=== PATIENT | female | born 1970 | race Caucasian/White ===

== ENCOUNTER 2022-03-30 09:31 | Outpatient (CLI) | payer OTHER, SELFPAY ==
--- NOTE | 2022-03-30 09:45 | CRLHL7_ITS ---
For Patients: As a result of the Century Cures Act, medical imaging exams and procedure reports are released immediately into your electronic medical record. You may view this report before your referring provider. If you have questions, please contact your health care provider. BILATERAL MAMMOGRAM WITH COMPUTER-AIDED DETECTION AND TOMOSYNTHESIS TECHNIQUE: CC and MLO views were obtained. These mammographic images have been obtained using full-field digital technique. These mammographic images were interpreted with the benefit of computer-aided detection. Breast Tomosynthesis was used in this interpretation. COMPARISON FILM: 03/28/21, 03/31/20, 03/31/19. FINDINGS: The breasts are heterogeneously dense, which may obscure small masses IMPRESSION: There is no radiographic evidence for malignancy. ASSESSMENT: BI-RADS Category 2: Benign RECOMMENDATION: Routine screening mammogram in 1 year. A lay language report of this examination will be provided to the patient. Jarred Bond M.D. Diagnostic Radiologist [email or web address] ISIDRO/Dictated by: Jarred Bond MD @ 04/02/2022 9:39:00 AM (Electronically Signed)
== END 2022-03-30 09:32 | disposition home or self-care (01) ==
LOC: MAMMO 09:33
PROVIDERS: Visit Provider Physician Assistant
DX: Z12.31 Encounter for screening mammogram for malignant neoplasm of breast (principal); R92.2 Inconclusive mammogram
CPT/HCPCS: 77063; 77067

== ENCOUNTER 2022-11-20 10:40 | Outpatient (CLI) | payer OTHER, SELFPAY ==
--- NOTE | 2022-11-20 11:00 | CRLHL7_ITS ---
For Patients: As a result of the Century Cures Act, medical imaging exams and procedure reports are released immediately into your electronic medical record. You may view this report before your referring provider. If you have questions, please contact your health care provider. INDICATION: new abnormal bleeding with IUD COMPARISON: none TECHNIQUE: 2D platt scale and color Doppler images were acquired of the pelvis using a transabdominal and transvaginal approach. FINDINGS: Sonographic images demonstrate a normal size and smooth outer contour of the uterus. Uterus measures 10.2 cm in length by 4.1 cm in AP diameter by 5.3 cm in transverse dimension. The myometrium has a heterogeneous echotexture. There is a left posterior fundal intramural fibroid measuring 1.6 x 1.4 x 1.4 cm. The intrauterine device is present in good position. The right ovary measures 4.2 x 1.9 x 2.8 cm in size and the left ovary measures 3.8 x 1.9 x 2.3 cm. The ovaries demonstrate normal arterial and venous blood flow on color Doppler analysis. There are no suspicious fluid collections within the cul-de-sac. Dominant follicle left ovary measuring 1.9 cm. Dominant follicle right ovary measuring 1.9 cm. IMPRESSION: Good position of the IUD within the endometrial canal. There is no endometrial fluid. A left-sided intramural fibroid is present measuring 1.6 cm which does not create mass effect upon the endometrium. Dominant follicles within each ovary. Dictated by Jarred Bond MD @ 11/20/2022 11:47:43 AM (Electronically Signed)
== END 2022-11-20 10:41 | disposition home or self-care (01) ==
PROVIDERS: Visit Provider Physician Assistant
DX: N93.9 Abnormal uterine and vaginal bleeding, unspecified (principal); N83.02 Follicular cyst of left ovary; N83.01 Follicular cyst of right ovary
CPT/HCPCS: 76830; 76856

== ENCOUNTER 2023-03-05 08:45 | Emergency (ER) | payer OTHER, SELFPAY ==
[2023-03-05 08:55] VITALS: BP 151/81; PULSE 62; RESP 16; TEMP 36.6; O2SAT 99
--- NOTE | 2023-03-05 09:07 | ED_ITS ---
HPI - Extremity Injury (Lower) General Time Seen by Provider: 09:07 Date Seen: 03/05/23 Chief Complaint: Extremity Pain/Injury, Lower Stated Complaint: left leg pain Time Seen by Provider: 03/05/23 09:07 Source: patient, RN notes reviewed and old records reviewed Mode of arrival: wheelchair Limitations: no limitations History of Present Illness HPI Narrative: Patient is a very pleasant 52-year-old female with history of vein stripping on her left leg who comes to the emergency room with her for evaluation of left leg pain. Patient was playing pickleball for the 1st time this morning. She was going to hit a ball and felt a sudden pop in her left lower calf. She was able to bear weight following that but has had pain since that time. She has not taken any medication. Movement or pressing on the lower calf increases her discomfort. She does have ice that is on her lower calf at this time. She denies any other injury. Related Data Home Medications Medication Instructions Recorded Confirmed levonorgestrel 21 mcg/24 hours (8 1 device intrauterine ONCE 03/30/22 03/05/23 yrs) 52 mg intrauterine device Allergies Allergy/AdvReac Type Severity Reaction Status Date / Time prochlorperazine Allergy Intermediate Blurred Verified 03/05/23 08:58 vision, slurred speech Sulfa drugs Allergy Intermediate Rash Uncoded 11/20/22 11:48 Review of Systems Status of ROS: Reports: 6 or more systems reviewed and unremarkable except as noted in History and below GI: Denies: vomiting Musculo: Reports: extremity pain; Denies: extremity swelling or joint pain Integ/Breast: Denies: redness or skin swelling PFSH PFSH Medical History Microscopic hematuria (08/25/10) ?R31.29 - Other microscopic hematuria (ICD-10) History of benign breast biopsy ?Z98.890 - Other specified postprocedural states (ICD-10) Surgical History History of breast biopsy ?Z98.890 - Other specified postprocedural states (ICD-10) History of bunionectomy ?Z98.890 - Other specified postprocedural states (ICD-10) Family History Paternal Grandmother Breast cancer, Onset Age: 60 Mother Diabetes High blood pressure Maternal Grandmother Osteoporosis Social History Narrative: Exercises regularly Has 2 children Non-smoker Smoking Status: Never smoker How often do you have a drink containing alcohol: 2-4 times a month AUDIT-C Alcohol total score: 2 Non-prescribed substance use: denies use Little interest or pleasure in doing things: not at all Feeling down, depressed, or hopeless: not at all Exam Narrative: Exam Narrative: Vi is alert and oriented. Very pleasant woman in no acute distress. No respiratory distress. Examination of the lower extremity shows symmetry with no obvious swelling. No obvious erythema. There is tenderness noted in the distal aspect of the calf. Achilles appears to be intact and there is no tenderness at the Achilles insertion. Patient is able to actively dorsiflex and plantar flex. Sensation is distally intact. Const: Vital Signs, click to edit/add: Vital Signs - 24 hr 03/05/23 08:55 Temperature 97.8 F Pulse Rate [Left P ulse Oximeter] 62 Respiratory Rate 16 Blood Pressure [Ri ght Upper Arm] 151/81 H Pulse Oximetry 99 Oxygen Delivery Me thod Room Air Documenting provider has reviewed patient's vital signs: yes Course Course Hospital Course: Differential diagnosis includes muscle strain, partial Achilles rupture, plantaris rupture. Will get ultrasound of the lower extremity is she has no bony tenderness at this time. Ibuprofen 800 mg p.o. Reevaluation(s) Reevaluation #1: Patient returns from ultrasound and notes improvement of her discomfort after ibuprofen. Continues to show good plantar flexion. Vital Signs Vital signs: Initial Vital Signs Temperature 97.8 F 03/05/23 08:55 Temperature Source Temporal Artery Scan 03/05/23 08:55 Pulse Rate 62 03/05/23 08:55 Respiratory Rate 16 03/05/23 08:55 Blood Pressure 151/81 H 03/05/23 08:55 Blood Pressure Mean 104 03/05/23 08:55 Blood Pressure Position Sitting 03/05/23 08:55 Pulse Oximetry 99 03/05/23 08:55 Oxygen Delivery Method Room Air 03/05/23 08:55 Vital Signs Temperature 97.8 F 03/05/23 08:55 Pulse Rate 62 03/05/23 08:55 Respiratory Rate 16 03/05/23 08:55 Blood Pressure 151/81 H 03/05/23 08:55 Pulse Oximetry 99 03/05/23 08:55 Oxygen Delivery Method Room Air 03/05/23 08:55 Temperature 97.8 F 03/05/23 08:55 Pulse Rate 62 03/05/23 08:55 Respiratory Rate 16 03/05/23 08:55 Blood Pressure 151/81 H 03/05/23 08:55 Pulse Oximetry 99 03/05/23 08:55 Oxygen Delivery Method Room Air 03/05/23 08:55 MDM - Extremity Injury (Lower) MDM Narrative Medical decision making narrative: 1. Left lower extremity injury-suspect plantaris rupture. Patient received 800 mg ibuprofen in the ED. Ultrasound did not show any evidence of abnormal Achilles. I think given the history this most likely represents plantaris rupture or injury. Will place patient in cam walker with slight elevation at the heel. Will have her use crutches for partial weight-bearing instability. Recommend icing and elevation when she does not need to be walking. Ibuprofen should be used as an anti-inflammatory. Patient does question me regarding an upcoming flight to [place]. I have suggested baby aspirin prior to flying. I have also suggested frequent movement at the ankle and calves to prevent stasis of blood and prevent DVT. Follow-up with orthopedics for recheck. 2. Disposition-home at this time. Return as needed for worsening symptoms. Medical Records Attestation: I reviewed the patient's medical records. Imaging Data Left lower extremity ultrasound: Attestation: I have reviewed the pertinent imaging results. Radiologist's impression: On the longitudinal image of the Achilles tendon, there is no evidence of full-thickness tear. Mild heterogeneity of the internal Achilles tendon echotexture suggested on the transverse images without significant surrounding fluid. No abnormal vascularity. Impression: There is no evidence of full-thickness Achilles tendon disruption by ultrasound. Discharge Plan Discharge Clinical Impression: Injury of left plantaris muscle or tendon, Injury of calf Patient Disposition: Home, Self-Care Condition: Improved Additional Instructions: Suggest ibuprofen as needed for discomfort. Recommend elevation and icing. You may bear partial weight. Will use a cam walker and crutches if your up for extended periods of time. Follow-up with orthopedics for recheck. They may suggest MRI, physical therapy or may be pleased with your improvement and discharge you without any further interventions. I would recommend baby aspirin before flying and frequent ankle movements to improve lower extremity blood flow. Return to the emergency room as needed. Prescriptions: No Action levonorgestrel 20 mcg/24 hours (7 yrs) 52 mg intrauterine device 1 device intrauterine ONCE Rx Instructions: as a single dose Follow Up/Referrals: Provider,Not a Local [Primary Care Provider] - Stand Alone Forms: [employer] Info Instructions
--- NOTE | 2023-03-05 09:16 | CRLHL7_ITS ---
For Patients: As a result of the Century Cures Act, medical imaging exams and procedure reports are released immediately into your electronic medical record. You may view this report before your referring provider. If you have questions, please contact your health care provider. Indication: r/o plantaris rupture vs achilles Technique: Grayscale and color Doppler ultrasound of the left Achilles tendon performed. Comparison: None Findings: On the longitudinal image of the Achilles tendon, there is no evidence of full-thickness tear. Mild heterogeneity of the internal Achilles tendon echotexture suggested on the transverse images without significant surrounding fluid. No abnormal vascularity. Impression: There is no evidence of full-thickness Achilles tendon disruption by ultrasound. Dictated by Jarred Bond MD @ 03/05/2023 11:51:11 AM (Electronically Signed)
[2023-03-05] MEDS: IBUPROFEN 400 MG TABLET 800 MG PO (09:33)
[2023-03-05 11:55] VITALS: BP 137/81; PULSE 55; RESP 16; O2SAT 99
== END 2023-03-05 12:27 | disposition home or self-care (01) ==
PROVIDERS: Emergency Provider Family Medicine
DX: S86.812A Strain of other muscle(s) and tendon(s) at lower leg level, left leg, initial encounter (principal); Y93.73 Activity, racquet and hand sports
CPT/HCPCS: 76882; 99283; 99284; A9270

== ENCOUNTER 2023-03-29 09:10 | Outpatient (CLI) | payer OTHER, SELFPAY ==
--- NOTE | 2023-03-29 09:15 | CRLHL7_ITS ---
For Patients: As a result of the Cures Act, medical imaging exams and procedure reports are released immediately into your electronic medical record. You may view this report before your referring provider. If you have questions, please contact your health care provider. BILATERAL SCREENING MAMMOGRAM WITH COMPUTER-AIDED DETECTION AND TOMOSYNTHESIS TECHNIQUE: CC and MLO views were obtained. These mammographic images have been obtained using full-field digital technique. These mammographic images were interpreted with the benefit of computer-aided detection. Breast Tomosynthesis was used in this interpretation. COMPARISON FILM: 03/30/22, 03/28/21, 03/31/20. FINDINGS: The breasts are extremely dense, which lowers the sensitivity of mammography IMPRESSION: There is no radiographic evidence for malignancy. ASSESSMENT: BI-RADS Category 1: Negative RECOMMENDATION: Routine screening mammogram in 1 year. A lay language report of this examination will be provided to the patient. Jrared Bond M.D. Diagnostic Radiologist [email or web address] MOLLY/david / be/Dictated by: Jarred Bond MD @ 03/29/2023 10:19:00 AM (Electronically Signed)
== END 2023-03-29 09:11 | disposition home or self-care (01) ==
LOC: MAMMO 09:11
PROVIDERS: Visit Provider Physician Assistant
DX: Z12.31 Encounter for screening mammogram for malignant neoplasm of breast (principal); R92.2 Inconclusive mammogram
CPT/HCPCS: 77063; 77067

== ENCOUNTER 2023-03-29 10:00 | Outpatient (CLI) | payer OTHER, SELFPAY | END 2023-03-29 10:01 | disposition home or self-care (01) | PROVIDERS: Visit Provider Physician Assistant | DX: Z01.419 Encounter for gynecological examination (general) (routine) without abnormal findings (principal); Z13.6 Encounter for screening for cardiovascular disorders; Z13.1 Encounter for screening for diabetes mellitus; Z13.29 Encounter for screening for other suspected endocrine disorder | CPT/HCPCS: 80061; 82947; 84443 ==

== ENCOUNTER 2024-03-09 07:43 | Outpatient (CLI) | payer OTHER, SELFPAY ==
--- OUTSIDE RECORDS SUMMARY | 2024-03-09 07:45 | XMS_ITS | Clinical Summary ---
Author Organization [facility] Address [address] [place] [address] Care Team Providers Care Mill Dresser Name Role Phone Found, No Pcp MD Primary Care Provider Unavailab le Source Comments You are receiving this document as you are listed as the primary care provider,follow-up provider, or the patient has been referred to you for consultation.This is in compliance with the Medicare and[facility] EHR Incentive Program,which states Providers who transition their patient to another setting of careor provider of care or refers their patient to another provider of care shouldprovide summary care record for each transition of care or referral. [facility] Allergies Active Allergy Reactions Criticality Noted Date Comments Prochlorperazine 03/25/2003 PN: LW Reaction: blurred vision/problem speaking Sulfa Antibiotics 05/24/2005 PN: LW Reaction: red eyes Medications Medication Sig Dispensed Refills Start Date End Date Status fexofenadine (AKA ZULEYMA) 180 MG tablet Take 1 tablet by mouth daily as needed. LW Addl Instr:Indicated for: Allergies 30 PRN 04/04/2010 Active Additional Information Patient not taking.Reported on 03/18/2020 unknown medication Indications: PN: 04/04/2010 Active desonide (DESOWEN) 0.05 % cream Apply 1 Application topically 2 times daily as needed. 15 01/23/2008 Active Additional Information Patient not taking.Reported on 03/18/2020 fluticasone (AKA FLONASE) 50 MCG/ACT nasal solution 1-2 sprays by Each Nostril route daily as needed. PRN 03/30/2008 Active pimecrolimus (AKA ELIDEL) 1 % cream Apply 1 Application topically 2 times daily as needed. LW Addl Instr:Indicated for: Atopic Dermatitis 3 08/03/2008 Active Active Problems Problem Noted Date Diagnosed Date Allergic rhinitis 03/13/2005 Overview: Rhinitis Allergic NOS Varicella 03/13/2005 Overview: LW Onset: childhood ; Varicella Zoster Resolved Problems Problem Noted Date Diagnosed Date Resolved Date Major depressive disorder, single episode 04/03/2004 03/30/2008 Overview: Depression Major NOS Immunizations Name Administration Dates Next Due TDAP (BOOSTRIX) 04/11/2012 Td 03/13/2005,04/02/1995 Family History Medical History Relation Name Comments Diabetes Mother Heart Disease Maternal Grandfather DE High Blood Pressure Maternal Grandfather High Blood Pressure Maternal Grandmother Cancer Paternal Grandmother breast cancer Relation Name Status Comments Father Alive Mother Alive Daughter Alive Maternal Grandfather Maternal Grandmother leukemi a Paternal Grandfather Alzheim er's Paternal Grandmother Sister Alive Son Alive Social History Tobacco Use Types Packs/Day Years Used Date Smoking Tobacco: Never Alcohol Use Standard Drinks/Week Comments Yes 0 (1 standard drink = 0.6 oz pur e alcohol) socially Sex and Gender Information Value Date Recorded Sex Assigned at Not on file Gender Identity Not on file Sexual Orientation Not on file Last Filed Vital Signs Vital Sign Reading Time Taken Comments Blood Pressure 100/60 04/11/2012 8:00 AM CDT Pulse 60 04/10/2011 8:29 AM CDT Temperature 36.4 ??C (97.5 ??F) 03/06/2023 12:26 PM C DT Respiratory Rate 6 05/22/2005 11:56 AM CDT Oxygen Saturation - - Inhaled Oxygen Concentration - - Weight 54.4 kg (120 lb) 03/06/2023 12:26 PM CDT Height 165.1 cm (5' 5) 03/06/2023 12:26 PM CDT Body Mass Index 19.97 03/06/2023 12:26 PM CDT Plan of Treatment Health Maintenance Due Date Last Done Comments Colon Cancer Screening Plan Due 1969 Hep C Screening (Preventive Services) 1969 HIV Screening (Preventive Services) 1985 Adult Preventive Visit 12/25/1987 HepB (1) 1988 Cervical Cancer Screening Due 04/12/2012 04/11/2012, 04/10/2011, 04/04/2010, Additional history exists Mammogram 04/11/2013 04/11/2012, 0805/2011, 04/05/2010 Cholesterol 2014 04/01/2009, 03/28/2004 COVID-19 Vaccine ( season) 2023 06/04/2022, 01/10/2022, 07/04/2021, Additional history exists Influenza (#1) 2024 06/26/2022, 06/03, 06/25/2019, Additional history exists DTaP/Tdap/Td (3 - Tdap) 03/30/2032 03/30/20 22, 04/11/2012, 03/13/2005, Additional history exists Zoster/Shingles Completed 04/18/2020, 02/17/2020 HepA Aged Out No longer eligi ble based on patient's age to complete this topic Hib Aged Out No longer eligi ble based on patient's age to complete this topic IPV (Polio) Aged Out No longer eligi ble based on patient's age to complete this topic MCV4 Aged Out No longer eligi ble based on patient's age to complete this topic Pneumococcal Aged Out No longer eligi ble based on patient's age to complete this topic Procedures Procedure Name Priority Date/Time Associated Diagnosis Comments MM MAMMOGRAM SCREENING BILAT W CAD Routine 04/11/2012 8:57 AM CDT Other screening mammogram ANATOMICAL PATH LIQUID BASED Routine 04/11/2012 8:45 AM CDT LIPID PANEL & DIRECT LDL (IF NEEDED) Routine 04/01/2009 10:04 AM CDT from Last 3 Months or Most Recently Relevant to Health Maintenance Results * MM Mammogram Screening Bilat W CAD (04/11/2012 8:57 AM CDT) Anatomical Region Laterality Modality Breast Bilateral Mammography Impressions 04/11/2012 9:34 AM CDT IMPRESSION: BILATERAL BREASTS Negative, no evidence of malignancy. Normal interval follow-up is recommended in 12 months. OVERALL ASSESSMENT - CATEGORY 1 - NEGATIVE END OF IMPRESSION Narrative 04/11/2012 9:34 AM CDT Comparison is made to films from 04/10/2011 (bilateral) and films from 04/05/2010 (bilateral). ??There is no significant interval change. Bilateral Breast Findings: The breasts are extremely dense (greater than 75% fibroglandular) which could obscure a lesion on mammography. ??No significant masses, calcifications or other abnormalities are seen. Procedure Note Fatoumata Conde MD - 05/01/2016 Comparison is made to films from 04/10/2011 (bilateral) and films from 04/05/2010 (bilateral). There is no significant interval change. Bilateral Breast Findings: The breasts are extremely dense (greater than 75% fibroglandular) which could obscure a lesion on mammography. No significant masses, calcifications or other abnormalities are seen. IMPRESSION IMPRESSION: BILATERAL BREASTS Negative, no evidence of malignancy. Normal interval follow-up is recommended in 12 months. OVERALL ASSESSMENT - CATEGORY 1 - NEGATIVE END OF IMPRESSION Isabela Dela Cruz PA-C RAD [facility] * Pap Smear (04/11/2012 8:45 AM CDT) 04/11/2012 8:45 AM CDT Narrative HP CONVERSION - 04/17/2012 9:48 AM CDT Final GYNECOLOGICAL CYTOLOGY REPORT Pathology #: [id number] ?Date Obtained: 04/11/2012 ? Date Received: 04/14/2012 INTERPRETATION/RESULTS: Negative for Intraepithelial Lesion or Malignancy SPECIMEN ADEQUACY: Satisfactory for Evaluation. ??No endocervical cells/transformation zone component present. Verified on 04/17/2012 ??by YOLANDA CRESPO(ASCP) (electronic signature) CLINICAL NOTES: ? LMP: Not Stated. LIQUID BASED PAP SMEAR SPECIMEN TYPE: ?CERVICAL WITH REFLEX TO HPV IF ASCUS PLEASE NOTE: The pap smear is a screening test designed to aid in the detection of cervical cancer and its precursor lesions. It is not a diagnostic procedure and should not be used as the sole means of detecting cervical cancer. Both false-positive and false-negative reports may occur. ? End of Report Isabela Swift Flakojoe JE-C LAB_1 Performing Organization Address City/[facility]/ZIP Co de Phone Number HP CONVERSION * Lipid Panel and Direct LDL(If Needed) (04/01/2009 10:04 AM CDT) Hours Fasting 12.0 Hours HP CONVERSION Cholesterol/HDL Ratio Screen 2.8 No normal range HP CONVERSION Cholesterol 199 <200 mg/dL HP CONVERSION HDL Cholesterol 70 >40 mg/dL HP CONVERSION Triglycerides 80 0 - 149 mg/dL HP CONVERSION LDL Calculated 113 0 - 130 mg/dL HP CONVERSION Comment: 04/01/2009 10:0 4 AM CDT Isabela Swift Jose De Jesus WOOTEN-C LAB_1 Performing Organization Address [facility] Co de Phone Number HP CONVERSION from Last 3 Months or Most Recently Relevant to Health Maintenance Care Teams Mill Dresser Relationship Specialty Start Date End Date Found, No Pcp, [id number] [place] [address] PCP - General 06/03/15
--- OUTSIDE RECORDS SUMMARY | 2024-03-09 07:45 | XMS_ITS | Continuity of Care Document ---
Author Organization [facility] Address [address] [address] [place] [address] Phone Care Team Providers Care Baler Operator Name Role Phone Roman COLLINS, Silas Unavailable Unavailable Allergies, Adverse Reactions, Alerts Substance Reaction Status Criticality PROCHLORPERAZINE MALEATE Speech problem Active N o Information PROCHLORPERAZINE EDISYLATE Speech problem Active No Information prochlorperazine Speech problem Active No Inform ation Sulfa (Sulfonamide Antibiotics) Rash Active No Information Medications Medication Instructions Dosage Effective Dates (start - stop) Status Comments Linzess 145 mcg capsule take 1 capsule by oral route every day on an empty stomach at least 30 minutes before 1st meal of the day 145 MCG - Active Golytely 236 gram-22.74 gram-6.74 gram-5.86 gram oral solution Take 8 ounces every 15 minutes until you complete the gallon. This is for bowel cleansing. - Active Procedures Procedure Date Offic/outpt E&m New [place] Advance Directives Directive Yes / No Effective Date File Name No Information Encounters Encounter Description Practice Location Reason(s) For Visit Diagnoses Date Provider Providers Copied on Encounter [facility], [address] [address], [place], [id number], [place] tel:[phone] [facility] No Information Roman COLLINS Silas. [address], [place], [id number] , [place]. tel:[phone] Offic/outpt E&m New [place] [facility], [address] [address], [place], [id number], [place] tel:[phone] [facility] GI Symptoms or Concerns (chief complaint) Irritable bowel syndrome with constipationAbdomin al bloating 4 Roman Rosen. [address], [place], [id number] , [place]. tel: [phone] Referring Provider: Referral Self, USE FOR SELF REFERRALS. [facility], [address] [address], [place], [id number], [place] tel:[phone] [facility] No Information 4 Ryan Guido. [address], [place], [id number] , [place]. tel: [phone] Family History Family Member Type Diagnosis Age At Onset No Information Immunizations Vaccine Date Status Comments SARS-COV-2 (COVID-19) vaccin e, mRNA, spike protein, LNP, preservative free, 50 mcg/0.5 mL dose administered Note: [facility] bi-direct ional interface ; Source: Other Registry Influenza, injectable, Madin Ashley Canine Kidney, quadrivalent with preservative administered Note: M[facility] C bi- directional interface ; Source: Other Registry Influenza, injectable, Madin Ashley Canine Kidney, quadrivalent with preservative administered Note: [facility] C bi- directional interface ; Source: Other Registry SARS-COV-2 (COVID-19) vaccin e, mRNA, spike protein, LNP, bivalent, preservative free, 50 mcg/0.5 mL or 25 mcg/0.25 mL dose administered Note: [facility] bi-direct ional interface ; Source: Other Registry SARS-COV-2 (COVID-19) vaccin e, mRNA, spike protein, LNP, preservative free, 100 mcg/0.5mL dose or 50 mcg/0.25mL dose administered Note: [facility] bi -directional interface ; Source: Other Registry SARS-COV-2 (COVID-19) vaccin e, mRNA, spike protein, LNP, preservative free, 100 mcg/0.5mL dose or 50 mcg/0.25mL dose administered Note: [facility] bi -directional interface ; Source: Other Registry Influenza, injectable, Madin Ashley Canine Kidney, quadrivalent with preservative administered Note: [facility] C bi- directional interface ; Source: Other Registry SARS-COV-2 (COVID-19) vaccin e, mRNA, spike protein, LNP, preservative free, 100 mcg/0.5mL dose or 50 mcg/0.25mL dose administered Note: [facility] bi -directional interface ; Source: Other Registry SARS-COV-2 (COVID-19) vaccin e, mRNA, spike protein, LNP, preservative free, 100 mcg/0.5mL dose or 50 mcg/0.25mL dose administered Note: [facility] bi -directional interface ; Source: Other Registry zoster vaccine recombinant administered N ote: [facility] bi-directional interface ; Source: Other Registry zoster vaccine recombinant administered N ote: [facility] bi-directional interface ; Source: Other Registry Influenza administered Note: [facility] bi-d irectional interface ; Source: Other Registry Afluria Qd administered Note: M [facility] bi-directional interface ; Source: Other Registry Influenza, seasonal, injecta ble, preservative free administered Note: [facility] bi-direct ional interface ; Source: Other Registry tetanus toxoid, reduced diphtheria toxoid, and acellular pertussis vaccine, adsorbed administered Note: [facility] b i-directional interface ; Source: Other Registry Novel [id number], injectable administered Note: [facility] bi-direct ional interface ; Source: Other Registry Payers Payer name Insurance type Covered green party ID Authorpo blackmon(s) [facility] [id number] Social History Type Description Quantity Date Captured Comments Alcohol Use Details Unknown Caffeine Use Details Unknown Tobacco Use Status No Information Smoking Status No Information Sex Female Chief Complaint And Reason For Visit No Information Reason For Referral Reason For Referral No Information Plan Of Treatment Date Type Action Status Appointment Vi Mayen BOOKED History Of Present Illness Encounter Date Complaint History Of Prese nt Illness GI Symptoms or Concerns 52-year- old female patient who presents for abdominal discomfort and bloating. Reports that she has had problems with abnormal bowel movements for her entire life, even before she had her 2 kids more than 20 years ago. Reports having 1-2 bowel movements every week. Type four [place] stool chart, does not require any straining however she always feels incomplete evacuation. Over the past 6 months noted to have abdominal discomfort, and the pelvic area, better after a bowel movement and worsens after couple of days when stool start buildup. She experienced significant flatulence after bowel movement. No upper GI symptoms. No rectal bleeding. No constitutional symptoms. Colonoscopy in 2019 was normal with recommendations to repeat colonoscopy in 10 years. No new medications over the past 6 months. Yearly examination by PCP was unremarkable. Blood test done in 2022 included TSH that was normal.Patient tried MiraLax a year ago, half capful a day that caused significant diarrhea. She did not try any other laxative. Functional Status Date Functional Assessmen t No Information Instructions Date Instruction Additional Infor wil Recommend bowel reginaldo nsing with GoLYTELY. Start linaclotide for IBS C the following day. Counseled about side effects including diarrhea. More reasonable to start with this therapy rather than conventional therapy with osmotic laxative given that her symptoms are more consistent with IBS rather than chronic idiopathic constipation with the presence of bloating, changes of abdominal discomfort after a bowel movement, had frequent incomplete evacuation. Follow-up in 3 months. Related to Irritable bowel syndrome with constipation Assessments Type Assessment Date No Information Patient Care Teams Name Effective Dates (start - stop) Status Members No Information
--- NOTE | 2024-03-09 08:00 | CRLHL7_ITS ---
For Patients: As a result of the Century Cures Act, medical imaging exams and procedure reports are released immediately into your electronic medical record. You may view this report before your referring provider. If you have questions, please contact your health care provider. Indication: Generalized enlarged lymph nodes. Technique: Ultrasound examination of the regions of palpable abnormality are performed using a high-resolution linear transducer. Comparison: None available Findings: There is a supraclavicular lymph node with normal internal hilar architecture and color Doppler flow. It measures 0.7 x 0.4 x 0.8 centimeters and is not large enough to be described as lymphadenopathy. This is probably a reactive lymph node. There is a left lateral neck lymph node measuring 1.7 x 0.3 x 1.2 centimeters, with normal internal architecture. This is also not large enough to be described as lymphadenopathy and is probably a reactive lymph node. Impression: Two reactive lymph nodes, 1 located in the right supraclavicular region and the other in the left lateral neck, not large enough to be described as lymphadenopathy. These can be followed clinically. Dictated by Murray Shaw MD @ 03/09/2024 9:28:06 AM (Electronically Signed)
== END 2024-03-09 07:44 | disposition home or self-care (01) ==
LOC: US 07:43
PROVIDERS: Visit Provider Physician Assistant Medical
DX: R59.1 Generalized enlarged lymph nodes (principal)
CPT/HCPCS: 76536

== ENCOUNTER 2024-03-12 07:41 | Outpatient (CLI) | payer OTHER, SELFPAY ==
--- OUTSIDE RECORDS SUMMARY | 2024-03-12 07:44 | XMS_ITS | Clinical Summary ---
Author Organization [facility] Address [address] [place] [address] Care Team Providers Care Pierogi Maker Name Role Phone Found, No Pcp MD Primary Care Provider Unavailab le Source Comments You are receiving this document as you are listed as the primary care provider,follow-up provider, or the patient has been referred to you for consultation.This is in compliance with the Medicare and[facility] EHR Incentive Program,which states Providers who transition their patient to another setting of careor provider of care or refers their patient to another provider of care shouldprovide summary care record for each transition of care or referral. [facility] Allergies Active Allergy Reactions Criticality Noted Date [...] Comments Diabetes Mother Heart Disease Maternal Grandfather HI High Blood Pressure Maternal Grandfather High Blood [...] CDT Final GYNECOLOGICAL CYTOLOGY REPORT Pathology #: [id number] ?Date Obtained: 04/11/2012 ? Date Received: 04/14/2012 [...] Swift Flakojoe JE-C LAB_1 Performing Organization Address City/[facility]/ZIP Co de Phone Number HP CONVERSION * [...] De Jesus WOOTEN-C LAB_1 Performing Organization Address [facility] Co de Phone Number HP CONVERSION from Last 3 Months or Most Recently Relevant to Health Maintenance Care Teams Pierogi Maker Relationship Specialty Start Date End Date Found, No Pcp, [address] [place] [address] PCP - General 06/03/15
--- NOTE | 2024-03-12 08:15 | CRLHL7_ITS ---
For Patients: As a result of the Century Cures Act, medical imaging exams and procedure reports are released immediately into your electronic medical record. You may view this report before your referring provider. If you have questions, please contact your health care provider. BILATERAL SCREENING MAMMOGRAM WITH COMPUTER-AIDED DETECTION AND TOMOSYNTHESIS TECHNIQUE: CC and MLO views were obtained. These mammographic images have been obtained using full-field digital technique. These mammographic images were interpreted with the benefit of computer-aided detection. Breast Tomosynthesis was used in this interpretation. COMPARISON FILM: 03/29/23, 03/30/22, 03/28/21. FINDINGS: The breasts are extremely dense, which lowers the sensitivity of mammography. IMPRESSION: There is no radiographic evidence for malignancy. ASSESSMENT: BI-RADS Category 1: Negative RECOMMENDATION: Routine screening mammogram in 1 year. A lay language report of this examination will be provided to the patient. Jerry Velazquez M.D. Diagnostic/Nuclear Medicine Radiologist [email or web address] SEVEN/charleen SP/Dictated by: Jerry Velazquez MD @ 03/12/2024 10:57:00 AM (Electronically Signed)
== END 2024-03-12 07:42 | disposition home or self-care (01) ==
PROVIDERS: Visit Provider Physician Assistant
DX: Z12.31 Encounter for screening mammogram for malignant neoplasm of breast (principal); R92.2 Inconclusive mammogram
CPT/HCPCS: 77063; 77067

== ENCOUNTER 2025-02-08 09:43 | Outpatient (CLI) | payer OTHER, SELFPAY ==
[2025-02-10 05:16] LABS: HPV Source Cervical; HPV, High Risk by TMA Not Detected
== END 2025-02-08 09:44 | disposition home or self-care (01) ==
PROVIDERS: PCP Physician Assistant Medical; Visit Provider Physician Assistant
DX: E53.8 Deficiency of other specified B group vitamins (principal); Z11.51 Encounter for screening for human papillomavirus (HPV); Z12.4 Encounter for screening for malignant neoplasm of cervix
CPT/HCPCS: 82607; 87624; 87625; 88141; 88142

== ENCOUNTER 2025-03-10 09:54 | Outpatient (CLI) | payer OTHER, SELFPAY ==
--- NOTE | 2025-03-10 10:15 | CRLHL7_ITS ---
For Patients: As a result of the Century Cures Act, medical imaging exams and procedure reports are released immediately into your electronic medical record. You may view this report before your referring provider. If you have questions, please contact your health care provider. INDICATION: BILATERAL SCREENING MAMMOGRAM, ASYMPTOMATIC 54 Y/O FEMALE COMPARISON: 03/12/2024, 03/29/2023, 03/30/2022 TECHNIQUE: Digital mammogram in CC and MLO projections including computer-aided detection (CAD) and tomosynthesis. BREAST COMPOSITION: The breasts are extremely dense, which lowers the sensitivity of mammography. FINDINGS: No suspicious findings. ASSESSMENT: BI-RADS 1 Negative RECOMMENDATION: Annual screening mammogram. A lay language report of this examination will be provided to the patient. Dictated by: Jarred Bond MD @ 03/10/2025 12:59:37 (Electronically Signed)
== END 2025-03-10 09:55 | disposition home or self-care (01) ==
LOC: MAMMO 09:55
PROVIDERS: Visit Provider Physician Assistant
DX: Z12.31 Encounter for screening mammogram for malignant neoplasm of breast (principal); R92.343 Mammographic extreme density, bilateral breasts
CPT/HCPCS: 77063; 77067